=== PATIENT | male | born 2005 | race Caucasian/White ===

== ENCOUNTER 2023-09-29 12:17 | Emergency (ER) | payer OTHER ==
[2023-09-29 12:33] VITALS: RESP 20; BMI 21.6
[2023-09-29] MEDS ORDERED: ONDANSETRON *ODT* 4 MG TABLET ONE (12:58)
[2023-09-29] MEDS ORDERED: IBUPROFEN 600 MG TABLET (FP) PO ONE (12:58)
[2023-09-29] MEDS ORDERED: ACETAMINOPHEN 500 MG TABLET (FP) ONE (12:59)
[2023-09-29] MEDS: ONDANSETRON 4 MG TABLET PO ONE (13:06)
[2023-09-29 13:11] LABS: THROAT:GRP A STREP DETECTED (NOTDETECTED)
[2023-09-29] MEDS: IBUPROFEN 600 MG TABLET (FP) PO ONE (13:15)
[2023-09-29] MEDS: ACETAMINOPHEN 500 MG TABLET (FP) PO ONE (13:15)
[2023-09-29 13:29] VITALS: BP 108/56; PULSE 111; TEMP 97.9
== END 2023-09-29 13:54 | disposition home or self-care (01) ==
LOC: JERFT 12:17
DX: J02.0 Streptococcal pharyngitis (principal); R05.9 Cough, unspecified; M79.10 Myalgia, unspecified site; Z20.822 Contact with and (suspected) exposure to COVID-19
CPT/HCPCS: 0241U-QW; 87651; 99283-25

== ENCOUNTER 2024-02-29 21:31 | Emergency (ER) | payer OTHER ==
[2024-02-29 21:39] VITALS: BP 122/64; PULSE 68; RESP 19; TEMP 98.6; BMI 23.2
[2024-02-29] MEDS ORDERED: ACETAMINOPHEN 1000 MG/100 ML BAG IVPB ONE (22:46)
[2024-02-29] MEDS ORDERED: morphine CARPU-JECT 2 MG/1 ML DISP.SYRIN IVPUSH ONE (22:49)
[2024-02-29] MEDS ORDERED: ONDANSETRON 4 MG/2 ML VIAL IVPUSH ONE (22:49)
[2024-02-29] MEDS ORDERED: BUPIVACAINE HCL/PF 0.5% (5MG/ML) 10 ML VIAL ONE (22:52)
[2024-02-29] MEDS ORDERED: LIDOCAINE HCL 2% (20ML MULTI-DOSE VIAL) ONE (22:52)
[2024-02-29] MEDS ORDERED: LACTATED RINGERS SOLUTION 1000 ML INFUS.BAG IV ONE (23:00)
== END 2024-02-29 23:52 | disposition home or self-care (01) ==
LOC: JER 21:31
PROC: 0C94XZZ Drainage of Buccal Mucosa, External Approach (ICD-10-PCS; principal; 2024-02-29)
DX: R22.0 Localized swelling, mass and lump, head (principal); K08.89 Other specified disorders of teeth and supporting structures; R51.9 Headache, unspecified; R50.9 Fever, unspecified; K04.7 Periapical abscess without sinus
CPT/HCPCS: 99283-25

== ENCOUNTER 2025-04-16 09:17 | Inpatient (IN) | payer OTHER ==
[2025-04-16] MEDS ORDERED: ACETAMINOPHEN INJECTION 100 ML ONE (09:48)
[2025-04-16] MEDS: SODIUM CHLORIDE 1,000 ML IV STA ×2 (10:07→12:29)
[2025-04-16] MEDS: ACETAMINOPHEN 1000 MG/100 ML BAG IVPB ONE (10:07)
[2025-04-16 10:15] LABS: ABSOLUTE IMMATURE GRANULOCYTES 0.01 x10^3/uL (0.0-0.031); BASOPHILS # 0.04 x10^3/uL (0.01-0.08); EOSINOPHIL % 3.7 % (0.8-7.0); EOSINOPHILS # 0.18 x10^3/uL (0.04-0.54); MCHC 33.3 g/dl (32.3-36.5); MEAN CELL VOLUME 87.0 fl (79.0-92.2); MEAN PLT VOLUME 9.9 fl (9.4-12.4); MONOCYTE # 0.50 x10^3/uL (0.30-0.82); MONOCYTE % 10.1 % (5.3-12.2); RDW 11.8 % (11.9-15.3)
[2025-04-16 10:20] LABS: INR 1.14 (0.83-1.09); PROTHROMBIN TIME (PATIENT) 12.5 SEC (9.7-13.0)
[2025-04-16 10:23] LABS: ACTIVATED PTT 34.6 SECONDS (25.2-36.5)
[2025-04-16 10:47] LABS: URINE APPEARANCE CLEAR; URINE BILIRUBIN NEGATIVE (NEGATIVE); URINE COLOR YELLOW; URINE GLUCOSE (UA) NEGATIVE (NEGATIVE); URINE KETONE TRACE (NEGATIVE); URINE LEUK ESTERASE NEGATIVE (NEGATIVE); URINE NITRITE NEGATIVE (NEGATIVE); URINE PROTEIN NEGATIVE (NEGATIVE); URINE UROBILINOGEN 0.2 mg/dL (0.2-1.0)
[2025-04-16 10:51] LABS: GLUCOSE,RANDOM 79.0 mg/dL (74-106); TOT PROT 7.6 g/dl (6.4-8.2)
[2025-04-16 10:52] LABS: CO2 23.0 mmol/L (21-32)
[2025-04-16 10:53] LABS: ALK PHOS 80.0 U/L (40-150)
[2025-04-16 10:56] LABS: CREATININE 0.8 mg/dL (0.55-1.3); SGOT/AST 25.0 U/L (5-34); SGPT/ALT 22.0 U/L (0-55)
[2025-04-16 11:06] LABS: HCV DIAGNOSTIC IN-HOUSE W/RFLX NON-REACTIVE (NONREACTIVE)
[2025-04-16 11:07] LABS: HIV INTERPRETATION NEGATIVE (NEGATIVE)
[2025-04-16] MEDS ORDERED: MORPHINE SULFATE 2 MG/ML SYRINGE ONE (12:04)
[2025-04-16] MEDS: morphine CARPU-JECT 2 MG/1 ML DISP.SYRIN IVPUSH ONE (12:15)
[2025-04-16] MEDS ORDERED: PIPERACILLIN/TAZOB 3.375 GM 3.375 GM/50 ML BAG IVPB ONE (12:20)
[2025-04-16] MEDS: PIPERACILLIN/TAZOB 3.375 GM 3.375 GM in DEXTROSE 5%-WATER - 50 ML IVPB ONE (12:29)
[2025-04-16] MEDS: SODIUM CHLORIDE 500 ML IV STA (13:56)
[2025-04-16] MEDS: FAMOTIDINE 20 MG/50 ML IVPB 20 MG/50 ML MG IVPB ONE (13:56)
[2025-04-16] MEDS ORDERED: FAMOTIDINE 20 MG/50 ML IVPB 20 MG/50 ML MG IVPB ONE (13:57)
[2025-04-16] MEDS: KETOROLAC TROMETHAMINE 30 MG/1 ML VIAL IVPUSH ONE (16:14)
[2025-04-16] MEDS ORDERED: KETOROLAC TROMETHAMINE 30 MG/1 ML VIAL ONE (16:39)
[2025-04-16] MEDS ORDERED: LIDOCAINE 4% PATCH TP ONE (16:40)
[2025-04-16] MEDS: LIDOCAINE 4% PATCH TP ONE (16:51)
[2025-04-16] MEDS ORDERED: MAG HYDROX/AL HYDROX/SIMETH 30 ML UNIT-DOSE CUP PO PRN (18:07)
[2025-04-16] MEDS: LACTATED RINGERS SOLUTION 1,000 ML/1,000 ML INFUS.BAG IV SCH (19:56)
[2025-04-16] MEDS: ACETAMINOPHEN 1000 MG/100 ML BAG IVPB PRN (19:57)
[2025-04-16] MEDS ORDERED: SENNOSIDES 8.6MG TABLET (FP) PO PRN (20:23)
[2025-04-16] MEDS ORDERED: KETOROLAC TROMETHAMINE 15 MG/ML VIAL IVPUSH PRN (20:24)
[2025-04-16] MEDS ORDERED: FAMOTIDINE 20 MG/50 ML IVPB 20 MG/50 ML MG IVPB SCH (22:00)
[2025-04-16] MEDS: morphine CARPU-JECT 2 MG/1 ML DISP.SYRIN IVPUSH PRN (23:35)
[2025-04-17 02:11] VITALS: BMI 24.7
[2025-04-17] MEDS: LIDOCAINE PATCH REMOVAL MC SCH (05:18)
[2025-04-17 09:07] LABS: MCHC 33.0 g/dl (32.3-36.5); MEAN CELL VOLUME 88.3 fl (79.0-92.2); MEAN PLT VOLUME 10.6 fl (9.4-12.4); RDW 11.7 % (11.9-15.3)
[2025-04-17] MEDS: POLYETHYLENE GLYCOL (HEALTHYLAX) 3350 17 GM PACKET PO SCH (09:10)
[2025-04-17 10:21] LABS: GLUCOSE,RANDOM 80.0 mg/dL (74-106); TOT PROT 7.2 g/dl (6.4-8.2)
[2025-04-17 10:22] LABS: CO2 23.0 mmol/L (21-32)
[2025-04-17 10:24] LABS: ALK PHOS 72.0 U/L (40-150)
[2025-04-17 10:26] LABS: SGOT/AST 29.0 U/L (5-34); SGPT/ALT 18.0 U/L (0-55)
[2025-04-17 10:27] LABS: CREATININE 0.81 mg/dL (0.55-1.3)
[2025-04-17 10:31] VITALS: BP 101/63; PULSE 60; RESP 16; TEMP 97.9
== END 2025-04-17 14:18 | disposition home or self-care (01) | DRG 351 ==
LOC: JER 09:17 → JERBED 15:13 → J5S 18:30 → OBSVTOIN 04-17 08:42
PROVIDERS: ADMIT Internal Medicine; ATTEND Internal Medicine
DX: S39.011A Strain of muscle, fascia and tendon of abdomen, initial encounter (principal); R10.31 Right lower quadrant pain; X58.XXXA Exposure to other specified factors, initial encounter; K59.00 Constipation, unspecified; Y93.9 Activity, unspecified; Y92.9 Unspecified place or not applicable; Y99.9 Unspecified external cause status
CPT/HCPCS: 36415; 74177-TC; 80053; 81003; 83690; 83735; 84100; 85025; 85027; 85610; 85730; 86803; 86850; 86900; 86901; 87086; 87389; 99285-25; G0378; Q9967